=== PATIENT | male | born 1955 | race Hispanic/Latino ===

== ENCOUNTER 2019-07-12 07:05 | Day surgery (SDC) | payer OTHER ==
[2019-07-11 12:12] VITALS: BMI 25.1
--- NOTE | 2019-07-11 14:38 | HP ---
HISTORY OF PRESENT ILLNESS: Andrade Hannon is a 64-year-old male, [facility], dialyzes Wednesday, Wednesday, and Wednesday in the afternoon, he is associated with [facility]. I am seeing him today regarding a dysfunctional PD catheter. The patient had the dialysis established 8 months ago in [facility]. He has left forearm cephalic vein fistula, Artemio type. He has Dr. Dupree at [facility] placed a PD catheter he thinks laparoscopically. Apparently, this was working at one point, then quit working and will not drain. Plan is for laparoscopic evaluation of his PD catheter. Currently undergoing hemodialysis Wednesday, Wednesday, and Wednesday . He is . His is with him. 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 PAST MEDICAL HISTORY: End-stage renal disease, on dialysis; hypertension; diabetes mellitus. Never had a colonoscopy. PAST SURGICAL HISTORY: Left arm fistula, PD catheter placement, and tonsillectomy. MEDICATION: 1. Carvedilol 25 mg b.i.d. 2. Torsemide 20 mg a day. REVIEW OF SYSTEMS: Noncontributory. PHYSICAL EXAMINATION: VITAL SIGNS: 142/69, 61, 97.9 degrees, and 174 pounds. HEAD, EARS, EYES, NOSE, and THROAT: Unremarkable. LUNGS: Clear to auscultation. CARDIAC: Regular rate and rhythm without murmur or gallop. ABDOMEN: Soft. PD catheter in place. Healthy exit site. EXTREMITIES: Unremarkable. Left arm Artemio fistula. Arterial inflow slightly more proximal than usual. Good hand function. ASSESSMENT AND PLAN: End-stage renal disease with dysfunctional peritoneal dialysis catheter. PLAN: Laparoscopic evaluation. He should postoperatively visit his PD nurse in 3 to 7 days to irrigate this. He can resume PD in the next 1 to 2 weeks post revision. He understands risks, benefits, and consents. Job ID: [id number]
[2019-07-12 07:57] LABS: #Basophils 0.1 thou/uL (0.0-0.2); #Eosinphils 0.1 thou/uL (0.0-0.7); #Lymphocytes 1.1 thou/uL (1.20-3.40); #Monocytes 0.8 thou/uL (0.11-0.59); #Neutrophils 4.5 thou/uL (1.40-6.50); %Basophils 0.8 % (0.0-1.0); %Lymphocytes 17.1 % (21.0-51.0); %Monocytes 12.5 % (0.0-10.0); %Neutrophils 67.7 % (42.0-75.0); Hemoglobin 9.9 g/dL (14.0-18.0); Mean Corpuscular HGB CONC 32.9 g/dL (32.0-36.0); Mean Corpuscular Hemoglobin 32.7 pg (27.0-31.0); Mean Corpuscular Volume 99.4 fL (78.0-98.0); Platelet Count 320 thou/uL (130-400); RBC Distribution Width 12.6 % (11.5-14.5); Red Blood Cell (RBC) Count 3.02 mill/uL (4.70-6.10); White Blood Cell (WBC) Count 6.7 thou/uL (4.8-10.8)
[2019-07-12 08:09] LABS: Anion Gap 13 mmol/L (10-20); BUN (Urea Nitrogen) 30 mg/dL (8.4-25.7); Calc. Creatinine Clearance 13 mL/min (70-130); Calcium 8.4 mg/dL (7.8-10.44); Carbon Dioxide 35 mmol/L (23-31); Chloride 98 mmol/L (98-107); Estimated GFR-MDRD 9; Glucose 113 mg/dL (80-115); Potassium 4.8 mmol/L (3.5-5.1); Sodium 141 mmol/L (136-145)
[2019-07-12] MEDS ORDERED: Lidocaine 1% w/Epinephrine 1:100K 20 ML VIAL ONE (08:35)
[2019-07-12] MEDS ORDERED: Bupivacaine PF 0.5% 30 ML VIAL ONE (08:35)
[2019-07-12] MEDS ORDERED: Heparin 10,000 UNITS/1 ML VIAL ONE (08:35)
[2019-07-12] MEDS ORDERED: Midazolam HCl 2 mg/2 ml Vial ONE (08:51)
[2019-07-12] MEDS ORDERED: Fentanyl 100 MCG/2 ML VIAL ONE (08:51)
[2019-07-12] MEDS ORDERED: Ondansetron PF 4 MG/2 ML Vial ONE (10:14)
[2019-07-12] MEDS ORDERED: PROPOFOL 200 MG/20 ML VIAL ONE (10:14)
[2019-07-12] MEDS ORDERED: Rocuronium Bromide 10 MG/ML (10ML VIAL) ONE (10:14)
[2019-07-12] MEDS ORDERED: Dexamethasone 20 MG/5 ML VIAL ONE (10:14)
[2019-07-12] MEDS ORDERED: Glycopyrrolate 0.2 MG/ML 5 ML SYRINGE ONE (10:14)
[2019-07-12] MEDS ORDERED: EPHEDRINE 25 MG/5 ML SYRINGE ONE (10:14)
--- NOTE | 2019-07-12 10:56 | RAD ---
XR Chest 1 View Portable HISTORY: Dyspnea COMPARISON: None FINDINGS: There are bilateral pleural effusions with opacities in the lower lung mckenzie. No pneumotho races are seen. There is elevation of the left hemidiaphragm. The heart size is borderline. No pneumothoraces are noted.
[2019-07-12 11:03] LABS: Actual Bicarbonate (HCO3a) 32.7 mEq/L (22-28); CO2 Tension 59.7 mmHg (35.0-45.0); Calcium, Ionized 1.07 mmol/L (1.12-1.30); Carboxyhemoglobin (COHb) 0.5 gm% (0.0-3.0); Hemoglobin (Hb) 9.6 g/dL (14.0-18.0); O2 Tension (PaO2) 317.5 mmHg (> 80.0); Potassium - ABG Lab 4.82 mmol/L (3.70-5.30); pH, Arterial 7.36 (7.35-7.45)
[2019-07-12 11:05] LABS: ALV-art Gradient 320.875 (0-20)
--- NOTE | 2019-07-12 11:16 | OP ---
DATE OF PROCEDURE: 07/12/2019 PREOPERATIVE DIAGNOSES: End-stage renal disease, dysfunctional peritoneal dialysis catheter, functioning left arm Artemio fistula, retained abdominal fluid (ascites). POSTOPERATIVE DIAGNOSES: End-stage renal disease, dysfunctional peritoneal dialysis catheter, functioning left arm Artemio fistula, retained abdominal fluid (ascites) with omental wrapping around the peritoneal dialysis catheter, which had reflected cephalad, very scant omentum but nonetheless, wrapped around the PD catheter preventing adequate drainage. PROCEDURES PERFORMED: Laparoscopic evaluation of peritoneal dialysis catheter, laparoscopic omentopexy, laparoscopic revision of peritoneal dialysis catheter with two sling sutures placed. ANESTHESIA: General anesthesia and local with 0.5% Marcaine 30 mL mixed with 1% Xylocaine with epinephrine 20 mL. DESCRIPTION OF PROCEDURE: The patient was taken to the operating room, where under general anesthesia, abdomen was prepared with ChloraPrep and draped in routine fashion. Local anesthetic was infiltrated in the skin and subcutaneous tissue about all port sites. Bilateral far lateral subcostal incision was made. Pneumoperitoneum to 15 mmHg was obtained with a Veress needle, replaced with a 5 port and contralateral 5 port was placed. A total of 4 L of ascites fluid evacuated. Liver appeared to be normal. Omentum had wrapped around the peritoneal dialysis catheter, which had reflected cephalad. This was unwrapped and the catheter flushed and it flushed well. Laparoscopic omentopexy performed using 2-0 Vicryl suture. Laparoscopic sling sutures x2, 0 Ethibond used to hold the catheter in place inferiorly, directed to the pelvis. Good hemostasis was noted. Irrigant and pneumoperitoneum were evacuated. All instruments were removed. All skin incisions were approximated with subdermal 4-0 Monocryl and Home glue applied. The patient tolerated the procedure well. Job ID: [id number]
== END 2019-07-12 13:00 | disposition home or self-care (01) ==
LOC: SDC 07:05
PROVIDERS: ATTEND Specialist
PROC: 0WHG43Z Insertion of Infusion Device into Peritoneal Cavity, Percutaneous Endoscopic Approach (ICD-10-PCS; principal; 2019-07-12)
DX: T85.691A Other mechanical complication of intraperitoneal dialysis catheter, initial encounter (principal); I12.0 Hypertensive chronic kidney disease with stage 5 chronic kidney disease or end stage renal disease; E11.22 Type 2 diabetes mellitus with diabetic chronic kidney disease; N18.6 End stage renal disease; R18.8 Other ascites; Z79.899 Other long term (current) drug therapy; Z99.2 Dependence on renal dialysis
CPT/HCPCS: 36415; 71045; 80048; 82805; 85025; 93005; 93010; J0690; J1100; J1644; J2250; J2405; J2704; J3010; S0020

== ENCOUNTER 2019-08-02 10:45 | Day surgery (SDC) | payer OTHER ==
--- NOTE | 2019-08-01 08:03 | HP ---
HISTORY OF PRESENT ILLNESS: Tristian Hannon is a 64-year-old male patient, dialyzes at 2 p.m. Wednesday, Wednesday, and Wednesday at [address] He has a functioning fistula and has a PD catheter initially placed by Dr. Dupree. This was placed probably March or April 2019 at [facility]. He has functioning left arm fistula established in November or December in [place] in 2018. He dialyzes [facility], Wednesday, Wednesday, Wednesday , followed by Dr. Palma. 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 His is with him. The patient had a dysfunctional PD catheter and underwent laparoscopic evaluation on 07/12/2019. This revealed omentum wrapped around the PD catheter, laparoscopic omentopexy and stay sutures permanent also placed to redirect the catheter into the pelvis performed. He states that still the catheter infuses well, does not drain well. Long discussion was held with the patient and his regarding peritoneal dialysis. The patient's states that he felt better on hemodialysis, but the patient insisted on wanting to try peritoneal dialysis. I have told him that I will do whatever they desire which options include removal of the PD catheter and abandoning peritoneal dialysis and continuing hemodialysis versus laparoscopic evaluation of the PD catheter for any problems that may arise and then if it continues not to work, we could remove at a later time. Consideration of removing his existing PD catheter and placing a new one could be given if that is felt necessary in the operating room. He consents these options and wishes to proceed. We will try with another effort to get peritoneal dialysis catheter to work. He understands risks and benefits of operation and consents. PAST MEDICAL HISTORY: End-stage renal disease, on dialysis; hypertension; diabetes mellitus; and never having had a colonoscopy. PAST SURGICAL HISTORY: Left arm fistula, PD catheter placement, more recent revision, and history of tonsillectomy. MEDICATIONS: 1. Carvedilol. 2. Torsemide. REVIEW OF SYSTEMS: Noncontributory. PHYSICAL EXAMINATION: VITAL SIGNS: Blood pressure 145/65, pulse 66, temperature 96.8 degrees, and 163 pounds. LUNGS: Clear to auscultation. CARDIAC: Regular rhythm without murmur or gallop. ABDOMEN: Soft and nontender. PD catheter in place. EXTREMITIES: Unremarkable. Functioning arm fistula. ASSESSMENT AND PLAN: Peritoneal dialysis dysfunction. We will plan on procedure as outlined above, laparoscopic evaluation, possible removal of old and placement of new, possible revision. He understands that if this does not work in the future, may have to remove it. He understands risks and benefits, consents. Job ID: [id number]
[2019-08-01 11:52] VITALS: BMI 25.1
[~2019-08-02 10:45] MED LIST: Dexamethasone 20 MG/5 ML VIAL ONE; EPHEDRINE 25 MG/5 ML SYRINGE ONE; Glycopyrrolate 0.2 MG/ML 5 ML SYRINGE ONE; Lidocaine 1% PF 5 ML VIAL ONE; Ondansetron PF 4 MG/2 ML Vial ONE; PROPOFOL 200 MG/20 ML VIAL ONE; Rocuronium Bromide 10 MG/ML (10ML VIAL) ONE
[2019-08-02] MEDS ORDERED: Lidocaine 1% w/Epinephrine 1:100K 20 ML VIAL ONE (10:54)
[2019-08-02] MEDS ORDERED: Heparin 10,000 UNITS/1 ML VIAL ONE (10:54)
[2019-08-02] MEDS ORDERED: Bupivacaine PF 0.5% 30 ML VIAL ONE (10:54)
[2019-08-02] MEDS ORDERED: Fentanyl 100 MCG/2 ML VIAL ONE (11:16)
[2019-08-02 11:41] LABS: Anion Gap 13 mmol/L (10-20); BUN (Urea Nitrogen) 31 mg/dL (8.4-25.7); Calc. Creatinine Clearance 11 mL/min (70-130); Calcium 8.3 mg/dL (7.8-10.44); Carbon Dioxide 33 mmol/L (23-31); Chloride 97 mmol/L (98-107); Estimated GFR-MDRD 8; Glucose 100 mg/dL (80-115); Potassium 5.2 mmol/L (3.5-5.1); Sodium 138 mmol/L (136-145)
[2019-08-02] MEDS ORDERED: SUGAMMADEX SODIUM 500 MG/5 ML VIAL ONE (12:42)
--- NOTE | 2019-08-02 16:10 | OP ---
DATE OF PROCEDURE: 08/02/2019 PREOPERATIVE DIAGNOSIS: End-stage renal disease with dysfunctional peritoneal dialysis catheter placement at another facility, but laparoscopic revised by me with sling sutures and omentopexy, but it now will not drain and has functioning arteriovenous fistula. PROCEDURES PERFORMED: 1. Laparoscopic evaluation of peritoneal dialysis catheter, finding the old PD catheter, left lower quadrant to be located in the correct position without any omental wrap around it and the previously placed sling sutures to be in place, directed into the pelvis. 2. Laparoscopic placement of a new peritoneal dialysis catheter in the right lower quadrant, double cuffed pigtail. 3. Placement of sling sutures on the new catheter. 4. Removal of old peritoneal dialysis catheter in the left lower quadrant. ANESTHESIA: General, local with 0.5% Marcaine 30 mL mixed with 1% Xylocaine with epi 20 mL. DESCRIPTION OF PROCEDURE: The patient was taken to the operating room where under general anesthesia, abdomen and old PD catheter were prepared with ChloraPrep and draped in routine fashion. The old PD catheter sequestered with OpSite dressing. Bilateral far lateral subcostal incision was made through old scars and pneumoperitoneum established to 15 mmHg with Veress needle, replacing with a 5 port, contralateral port placed under laparoscopic visualization. There was peritoneal fluid that was inadequately drained, evacuated more than 2 L. The previously placed PD catheter in the left lower quadrant had sling sutures in place and it was directed into the pelvis. There was no omentum around it. Previous omentopexy was intact in the upper abdomen. The sling suture was removed. A counter incision was made in the right paraumbilical. An 8 mm port placed, directed caudally in the subcutaneous tissue, visualized laparoscopically, directed into the rectus sheath and penetrating the abdominal wall inferiorly, placing a double cuffed pigtail peritoneal dialysis catheter and placing the inner cuff in the rectus sheath. [place] dissector placed through the planned exit site, pinpoint stab incision, and directed to the counterincision, grasping the catheter, placing the external cuff beneath the catheter exit site. Subcutaneous tissue was approximated with 4-0 Monocryl, skin with subdermal 4-0 Monocryl, and sling suture was placed in the new catheter to securely direct it into the pelvis. It was flushed with heparinized saline solution and 1000 units of heparin per mL, 10 mL, and capped and sterile dressings applied. At this point, pneumoperitoneum was reduced. All instruments were removed and all skin incisions were approximated with subdermal 4-0 Monocryl. The old PD catheter was then dissected free, removing the catheter and 2 cuffs and a gauze dressing applied. The patient tolerated the procedure well. Job ID: [id number]
== END 2019-08-02 14:45 | disposition home or self-care (01) ==
LOC: SDC 10:45
PROVIDERS: ATTEND Specialist
PROC: 0JWT33Z Revision of Infusion Device in Trunk Subcutaneous Tissue and Fascia, Percutaneous Approach (ICD-10-PCS; principal; 2019-08-02)
DX: T85.611A Breakdown (mechanical) of intraperitoneal dialysis catheter, initial encounter (principal); I12.0 Hypertensive chronic kidney disease with stage 5 chronic kidney disease or end stage renal disease; E11.22 Type 2 diabetes mellitus with diabetic chronic kidney disease; N18.6 End stage renal disease; Z79.899 Other long term (current) drug therapy; Z99.2 Dependence on renal dialysis
CPT/HCPCS: 36415; 80048; J0690; J1100; J1644; J2001; J2405; J2704; J3010; S0020

== ENCOUNTER 2019-11-13 07:27 | Outpatient (CLI) | payer OTHER ==
[2019-11-13 16:33] LABS: #Basophils 0.1 thou/uL (0.0-0.2); #Eosinphils 0.1 thou/uL (0.0-0.7); #Lymphocytes 1.1 thou/uL (1.20-3.40); #Monocytes 0.7 thou/uL (0.11-0.59); #Neutrophils 4.1 thou/uL (1.40-6.50); %Basophils 0.9 % (0.0-1.0); %Eosinophils 1.5 % (0.0-10.0); %Lymphocytes 18.4 % (21.0-51.0); %Monocytes 11.1 % (0.0-10.0); %Neutrophils 68.2 % (42.0-75.0); Hemoglobin 11.6 g/dL (14.0-18.0); Mean Corpuscular HGB CONC 31.1 g/dL (32.0-36.0); Mean Corpuscular Hemoglobin 30.6 pg (27.0-31.0); Mean Corpuscular Volume 98.1 fL (78.0-98.0); Platelet Count 281 thou/uL (130-400); Red Blood Cell (RBC) Count 3.78 mill/uL (4.70-6.10); White Blood Cell (WBC) Count 5.9 thou/uL (4.8-10.8)
[2019-11-13 16:51] LABS: Anion Gap 15 mmol/L (10-20); BUN (Urea Nitrogen) 36 mg/dL (8.4-25.7); Calc. Creatinine Clearance 0 mL/min (70-130); Calcium 7.9 mg/dL (7.8-10.44); Carbon Dioxide 32 mmol/L (23-31); Chloride 99 mmol/L (98-107); Estimated GFR-MDRD 7; Glucose 125 mg/dL (80-115); Potassium 6.2 mmol/L (3.5-5.1); Sodium 140 mmol/L (136-145)
[2019-11-13 20:22] LABS: SARS-CoV-2 MS2 Positive; SARS-CoV-2 N Gene Negative; SARS-CoV-2 S Gene Negative; SARS-CoV-2 orf1ab Negative
== END 2019-11-13 07:28 | disposition home or self-care (01) ==
LOC: LABBT 07:27
PROVIDERS: ATTEND Specialist
DX: Z01.818 Encounter for other preprocedural examination (principal); Z11.59 Encounter for screening for other viral diseases; T85.611A Breakdown (mechanical) of intraperitoneal dialysis catheter, initial encounter; N18.6 End stage renal disease
CPT/HCPCS: 80048; 85025; 87635; U0003

== ENCOUNTER 2019-11-15 07:18 | Day surgery (SDC) | payer OTHER ==
[2019-11-14 10:28] VITALS: BMI 24.0
--- NOTE | 2019-11-15 07:38 | HP ---
HISTORY OF PRESENT ILLNESS: Refugio Hannon is a 64-year-old male who dialyzes at [address], Wednesday, Wednesday, and Wednesday 4 p.m. He has a left Artemio fistula established by the MA. He had initially a dialysis catheter placed at [facility], that did not work well, that was removed and replaced at [facility], again did not work well. He then saw me for another opinion. We initially laparoscopically evaluated the catheter, repositioned it, but it did not work optimally, and subsequently, removed the left-sided catheter and placed a new laparoscopic PD catheter, and this has worked well for dialysis. However, the patient cannot afford the co-pays required by the MA. He cannot manage home peritoneal dialysis even though the catheter mechanically functions well. He has returned to hemodialysis. He desires his PD catheter to be removed. We will plan on removal this under IV sedation, local anesthesia as an outpatient. He understands risks and benefits, consents. MEDICATIONS: 1. Carvedilol. 2. Hydralazine. 3. Isosorbide. 4. Torsemide. PAST MEDICAL HISTORY: Hypertension; end-stage renal disease, on maintenance dialysis. ALLERGIES: NONE. PAST SURGICAL HISTORY: PD catheter placement and removal and revisions as noted above, left AV fistula. FAMILY HISTORY: Noncontributory. TOBACCO: None. ALCOHOL: None. REVIEW OF SYSTEMS: Noncontributory. PHYSICAL EXAMINATION: VITAL SIGNS: Weight 157 pounds. Blood pressure 148/81, pulse 64, temperature 99.1 degrees. HEAD, EARS, EYES, NOSE, AND THROAT: Unremarkable. LUNGS: Clear to auscultation. NEUROLOGIC: Intact. LUNGS: Clear to auscultation. CARDIAC: Regular rate and rhythm without murmur or gallop. ABDOMEN: Soft and nontender. Normal bowel sounds. Right lower quadrant PD catheter, site looks healthy without infection. EXTREMITIES: Left wrist, primary Artemio fistula, good thrill and bruit, well distended. No ankle edema. ASSESSMENT AND PLAN: 1. Unable to manage PD catheter, we will plan on removal. 2. End-stage renal disease, on maintenance dialysis, hemodialysis utilizing left Artemio fistula. Job ID: [id number]
[2019-11-15] MEDS ORDERED: Lidocaine 1% w/Epinephrine 1:100K 20 ML VIAL ONE (07:46)
[2019-11-15] MEDS ORDERED: Bupivacaine PF 0.5% 30 ML VIAL ONE (07:46)
[2019-11-15] MEDS ORDERED: Midazolam HCl 2 mg/2 ml Vial ONE (07:55)
[2019-11-15] MEDS ORDERED: Propofol 1,000 MG/100 ML VIAL IV ONE (07:55)
[2019-11-15] MEDS ORDERED: Fentanyl 100 MCG/2 ML VIAL ONE (07:55)
--- NOTE | 2019-11-15 09:31 | OP ---
DATE OF PROCEDURE: 11/15/2019 PREOPERATIVE DIAGNOSES: 1. End-stage renal disease, dialyzed using left arm fistula. 2. Peritoneal dialysis catheter did not work out for him, although mechanically it functioned well. POSTOPERATIVE DIAGNOSES: 1. End-stage renal disease, dialyzed using left arm fistula. 2. Peritoneal dialysis catheter did not work out for him, although mechanically it functioned well. PROCEDURE PERFORMED: Removal of peritoneal dialysis catheter. ANESTHESIA: Intravenous sedation, local with 0.5% Marcaine 30 mL, mixed with 1% Xylocaine with epinephrine 20 mL. DESCRIPTION OF PROCEDURE: The patient was taken to the operating room where under intravenous sedation, abdomen was prepared with ChloraPrep and draped in routine fashion. PD catheter transected. Local anesthetic was infiltrated in the skin and subcutaneous tissue about the operative site, and PD catheter and both cuffs were removed intact, removing the catheter, draining fluid as able. A gauze dressing placed on the wound. The patient tolerated the procedure well. Job ID: [id number]
== END 2019-11-15 10:02 | disposition home or self-care (01) ==
LOC: SDC 07:18
PROVIDERS: ATTEND Specialist
PROC: 0WPG0YZ Removal of Other Device from Peritoneal Cavity, Open Approach (ICD-10-PCS; principal; 2019-11-15)
DX: T85.611A Breakdown (mechanical) of intraperitoneal dialysis catheter, initial encounter (principal); I12.0 Hypertensive chronic kidney disease with stage 5 chronic kidney disease or end stage renal disease; E11.22 Type 2 diabetes mellitus with diabetic chronic kidney disease; N18.6 End stage renal disease; Z79.899 Other long term (current) drug therapy; Z99.2 Dependence on renal dialysis
CPT/HCPCS: J0690; J2250; J2704; J3010; S0020

== ENCOUNTER 2021-03-03 08:11 | Day surgery (SDC) | payer OTHER ==
[2021-03-03 08:13] LABS: #Eosinphils 0.1 thou/uL (0.0-0.7); #Lymphocytes 0.9 thou/uL (1.20-3.40); #Monocytes 0.7 thou/uL (0.11-0.59); #Neutrophils 3.1 thou/uL (1.40-6.50); %Basophils 0.6 % (0.0-1.0); %Eosinophils 1.1 % (0.0-10.0); %Lymphocytes 19.2 % (21.0-51.0); %Monocytes 13.7 % (0.0-10.0); %Neutrophils 65.3 % (42.0-75.0); Hemoglobin 11.5 g/dL (14.0-18.0); Mean Corpuscular HGB CONC 31.7 g/dL (32.0-36.0); Mean Corpuscular Hemoglobin 33.9 pg (27.0-31.0); Mean Platelet Volume 6.3 fL (7.4-10.4); Platelet Count 213 thou/uL (130-400); RBC Distribution Width 12.3 % (11.5-14.5); Red Blood Cell (RBC) Count 3.38 mill/uL (4.70-6.10); White Blood Cell (WBC) Count 4.8 thou/uL (4.8-10.8)
[2021-03-03] MEDS ORDERED: Lidocaine 1% PF 5 ML VIAL ONE (08:21)
[2021-03-03] MEDS ORDERED: Sodium Bicarbonate 2.5 MEQ/5 ML VIAL ONE (08:21)
[2021-03-03 08:26] LABS: INR-International Normal Ratio 1.2; PTT 53.3 sec (22.9-36.1); Prothrombin Time 15.8 sec (12.0-14.7)
[2021-03-03 09:28] VITALS: BP 210/100; TEMP 97.7
[2021-03-03 10:36] LABS: Macrocytosis SLIGHT = 6-15 cells (100X) (0-5/hpf); Polychromasia SLIGHT = 2-3 cells (100X) (0-2/hpf)
== END 2021-03-03 08:58 | disposition home or self-care (01) ==
LOC: ULT 08:11
PROVIDERS: ATTEND Internal Medicine Gastroenterology
DX: R18.8 Other ascites (principal); Z53.09 Procedure and treatment not carried out because of other contraindication; Z79.899 Other long term (current) drug therapy
CPT/HCPCS: 85025; 85610; 85730